=== PATIENT | female | born 1960 | race Caucasian/White ===

== ENCOUNTER 2017-10-11 11:15 | Emergency (ER) | payer MEDICAID ==
[~2017-10-11] VITALS: Ht 160 cm; Wt 66.7 kg
[2017-10-11 13:25] VITALS: BP 137/94
== END 2017-10-11 13:41 | disposition home or self-care (01) ==
LOC: ED 11:15
DX: S93.601A Unspecified sprain of right foot, initial encounter (principal); S93.602A Unspecified sprain of left foot, initial encounter; I10 Essential (primary) hypertension; E11.9 Type 2 diabetes mellitus without complications; W01.0XXA Fall on same level from slipping, tripping and stumbling without subsequent striking against object, initial encounter; Y93.89 Activity, other specified; Y92.89 Other specified places as the place of occurrence of the external cause; Y99.8 Other external cause status
CPT/HCPCS: Q0092

== ENCOUNTER 2019-01-26 17:44 | Emergency (ER) | payer OTHER ==
[2019-01-26 20:41] LABS: BASOPHIL % 0.6 % (0-2); PLATELET COUNT 260 x10^3mcL (130-400)
[2019-01-26 20:43] LABS: microscopic required? NO
[2019-01-26 20:56] LABS: urine erythrocyte NEGATIVE (NEGATIVE)
[2019-01-26 21:00] LABS: ALBUMIN 4.1 g/dL (3.4-5.0); ALKALINE PHOSPHATASE 103 U/L (46-116); ALT/SGPT 87 U/L (14-59); AST/SGOT 66 U/L (15-37); BILIRUBIN TOTAL 0.37 mg/dL (0.20-1.00); CALCIUM 9.8 mg/dL (8.5-10.1); CARBON DIOXIDE 29.2 mmol/L (21-32); CHLORIDE SERUM 97 mmol/L (98-107); CREATININE SERUM 0.6 mg/dL (0.6-1.0); GFR1 > 60 mL/min; GLUCOSE SERUM 101 mg/dL (74-106); LIPASE 108 IU/L (73-393); SODIUM SERUM 136 mmol/L (136-145)
[2019-01-26 21:02] LABS: TOTAL PROTEIN, SERUM 8.9 g/dL (6.4-8.2)
[2019-01-26 21:03] LABS: CHOLESTEROL 204 mg/dL (<200); HDL CHOLESTEROL 34 mg/dL (40-60); POTASSIUM SERUM 2.8 mmol/L (3.5-5.1); T4(THYROXINE) 14.1 ug/dL (4.7-13.3)
[2019-01-26 21:12] LABS: AMPHETAMINE QUAL UR NONE DETECTED (See below)
[2019-01-27 00:47] VITALS: BP 111/80
== END 2019-01-27 00:47 | disposition home or self-care (01) ==
LOC: ED 17:44
PROVIDERS: Emergency Medicine
DX: F43.0 Acute stress reaction (principal); R07.89 Other chest pain; E87.6 Hypokalemia; E11.9 Type 2 diabetes mellitus without complications; I10 Essential (primary) hypertension
CPT/HCPCS: 83880; G0480; J3480; J7040; Q0092

== ENCOUNTER 2019-03-01 06:29 | Emergency (ER) | payer OTHER ==
[~2019-03-01] VITALS: Ht 162.6 cm; Wt 62.6 kg
[2019-03-01 06:32] VITALS: Ht 162.6 cm; Wt 62.6 kg
[2019-03-01 07:20] VITALS: BP 132/83
== END 2019-03-01 07:50 | disposition home or self-care (01) ==
LOC: ED 06:29
DX: J01.90 Acute sinusitis, unspecified (principal); I10 Essential (primary) hypertension; E11.9 Type 2 diabetes mellitus without complications

== ENCOUNTER 2019-03-02 19:11 | Emergency (ER) | payer OTHER ==
[~2019-03-02] VITALS: Ht 162.6 cm; Wt 69.9 kg
[2019-03-02 19:25] VITALS: Ht 162.6 cm; Wt 69.9 kg
[2019-03-02 19:58] LABS: BASOPHIL % 0.5 % (0-2); PLATELET COUNT 310 x10^3mcL (130-400); RED CELL DISTRIBUTION WIDTH 13.8 % (11.5-14.5)
[2019-03-02 20:09] LABS: ALBUMIN 3.8 g/dL (3.4-5.0); ALKALINE PHOSPHATASE 114 U/L (46-116); ALT/SGPT 71 U/L (14-59); AST/SGOT 75 U/L (15-37); BILIRUBIN TOTAL 0.38 mg/dL (0.20-1.00); CALCIUM 9.4 mg/dL (8.5-10.1); CARBON DIOXIDE 24.8 mmol/L (21-32); CHLORIDE SERUM 86 mmol/L (98-107); CREATININE SERUM 0.7 mg/dL (0.6-1.0); GFR1 > 60 mL/min; GLUCOSE SERUM 196 mg/dL (74-106)
[2019-03-02 20:22] LABS: POTASSIUM SERUM 2.6 mmol/L (3.5-5.1); SODIUM SERUM 124 mmol/L (136-145); TOTAL PROTEIN, SERUM 8.7 g/dL (6.4-8.2)
[2019-03-02 23:08] VITALS: BP 126/82
== END 2019-03-02 23:08 | disposition home or self-care (01) ==
LOC: ED 19:11
PROVIDERS: Emergency Medicine
DX: B34.9 Viral infection, unspecified (principal); R04.0 Epistaxis; E87.1 Hypo-osmolality and hyponatremia; E87.6 Hypokalemia
CPT/HCPCS: 36415; 87804; J7030; Q0092